=== PATIENT | female | born 1990 | race Caucasian/White ===

== ENCOUNTER → 2020-05-30 13:02 | Outpatient (CLI) | payer OTHER ==
[2020-04-28 09:02] VITALS: BMI 38.7
[~2020-05-30 13:02] MED LIST: CRESTOR5 MG PO; DURAFLU 325-201 EACH PO; LYRICA150 MG PO; MULTI-DAY VITAM1 TAB PO; SINGULAIR10 MG PO; VITAMIN D-32000 UNI2 PO
== END | disposition home or self-care (01) ==
LOC: D.US 05-18 13:00
PROVIDERS: ATTEND Obstetrics & Gynecology
DX: N63.23 Unspecified lump in the left breast, lower outer quadrant (principal); N63.14 Unspecified lump in the right breast, lower inner quadrant